=== PATIENT | female | born 1950 | race Caucasian/White ===

== ENCOUNTER 2018-03-05 21:02 | Emergency (ER) | payer BC, OTHER ==
[2018-03-05 22:44] LABS: Absolute Lymphocytes (CBC) 1.9 K/uL (0.7-4.9); Absolute Monocytes 0.8 K/uL (0.1-1.3); Absolute Neutrophil 4.4 K/uL (1.8-8.0); Basophils % 0.8 % (0-1.3); Eosinophils % 2.5 % (0-4.4); Lymphocytes % 26.2 % (15.3-44.8); MCH 29.6 pg (27.0-35.0); MCV 90.3 fL (80-100); Monocytes % 10.8 % (3.3-12.3); RBC Red Blood Cell Count 4.65 M/uL (3.86-4.86)
[2018-03-05 22:49] LABS: Protime INR 1.09
[2018-03-05 23:03] LABS: Potassium 3.4 mEq/L (3.6-5.0)
[2018-03-05 23:09] LABS: Albumin 3.8 g/dL (3.2-5.5); Bilirubin Direct 0.2 mg/dL (0-0.2); Bilirubin Total 0.5 mg/dL (0.3-1.2); Magnesium 1.6 mg/dL (1.8-2.5); Protein, Total 7.5 g/dL (6.0-8.3)
[2018-03-05] MEDS ORDERED: AZITHROMYCIN 250 MG TAB ONE (23:15)
[2018-03-05] MEDS ORDERED: KETOROLAC 30 MG/ML INJ ONE (23:15)
[2018-03-05] MEDS ORDERED: predniSONE 20 MG TAB ONE (23:15)
[2018-03-05] MEDS ORDERED: CEFTRIAXONE/SWI 1gm 1 GM/10 ML SYR ONE (23:16)
[2018-03-05] MEDS ORDERED: ALBUTEROL 2.5 MG/3 ML NEB SOL ONE (23:43)
[2018-03-05] MEDS ORDERED: IPRATROPIUM BROM 0.5MG/2.5ML ONE (23:43)
--- NOTE | 2018-03-06 00:01 | ER ---
Nurse's Notes [facility] Name: Carla Logan Age: 67 yrs Sex: Female : 1950 Arrival Date: 03/05/2018 Time: 21:05 Bed 5 Private MD: Channing Camarena T Diagnosis: Pneumonia due to other specified bacteria Presentation: 03/05 21:10 Presenting complaint: Patient states: Martha felt SOB since thanksgiving but it has gotten la1 much worse over the course of the last few days. Pt able to speak full sentences in triage, respirations even and unlabored. Transition of care: patient was not received from another setting of care. Onset of symptoms was March 05, 2018. Initial Sepsis Screen: Does the patient meet any 2 criteria? No. Patient's initial sepsis screen is negative. Does the patient have a suspected source of infection? No. Patient's initial sepsis screen is negative. Care prior to arrival: None. 21:10 Method Of Arrival: Wheelchair la1 21:10 Acuity: YESSICA 3 la1 Triage Assessment: 22:42 General: Appears in no apparent distress. comfortable, Behavior is calm, cooperative, ao appropriate for age. Respiratory: Reports shortness of breath Onset: The symptoms/episode began/occurred this morning, the patient has mild shortness of breath. Historical: - Allergies: 21:11 No Known Allergies; la1 - PMHx: 21:11 Diabetes - NIDDM; Hypertension; la1 - Immunization history:: Adult Immunizations up to date. - Social history:: Smoking status: Patient/guardian denies using tobacco. - Family history:: not pertinent. Screenin:41 Abuse screen: Denies threats or abuse. Denies injuries from another. Nutritional ao screening: No deficits noted. Tuberculosis screening: No symptoms or risk factors identified. Fall Risk None identified. Assessment: 22:40 General: Appears in no apparent distress. comfortable, Behavior is calm, cooperative, ao appropriate for age. Pain: Denies pain. Neuro: Level of Consciousness is awake, alert, obeys commands, Oriented to person, place, time, situation, Appropriate for age Moves all extremities. Speech is normal, Facial symmetry appears normal. Cardiovascular: Capillary refill < 3 seconds Patient's skin is warm and dry. Cardiovascular: Rhythm is regular. Respiratory: Airway is patent Respiratory effort is even, unlabored, Respiratory pattern is regular, symmetrical, Breath sounds with wheezes bilaterally. GI: Abdomen is non-distended. : No signs and/or symptoms were reported regarding the genitourinary system. EENT: No signs and/or symptoms were reported regarding the EENT system. Derm: Skin is normal. Musculoskeletal: No signs and/or symptoms reported regarding the musculoskeletal system. 23:40 Reassessment: Received a verbal orders fro Dr Daniels to give a breathing treatment of ao Duoneb to patient. 23:45 Reassessment: Patient appears in no apparent distress at this time. Patient and/or ao family updated on plan of care and expected duration. Pain level reassessed. Patient is alert, oriented x 3, equal unlabored respirations, skin warm/dry/pink. Vital Signs: 21:11 BP 131 / 59; Pulse 100; Resp 19; Temp 97.9(O); Pulse Ox 91% on R/A; Weight 118.39 kg; la1 Height 5 ft. 3 in. (160.02 cm); 22:30 BP 146 / 80; Pulse 84; Resp 6; Pulse Ox 94% ; Pain 2/10; ao 23:45 BP 145 / 83; Pulse 83; Resp 16; Pulse Ox 100% on Nebulizer Mask; Pain 0/10; ao 21:11 Body Mass Index 46.23 (118.39 kg, 160.02 cm) la1 ED Course: 21:05 Patient arrived in ED. es 21:06 Channing Camarena MD is Private Physician. es 21:10 Triage completed. la1 21:11 Arm band placed on right wrist. la1 21:45 Meghan Daniels MD is Attending Physician. ma2 22:27 XRAY Chest (1 view) In Process Unspecified. EDMS 22:27 X-ray completed. Portable x-ray completed in exam room. Patient tolerated procedure ag1 well. 22:28 Dewey Kidd, ENOCH is Primary Nurse. ao 22:42 Patient has correct armband on for positive identification. Pulse ox on. NIBP on. ao 22:43 Inserted saline lock: 20 gauge in right antecubital area, using aseptic technique. ao ,using aseptic technique. Flushed with 10 ml NS Blood collected. 03/06 00:44 No provider procedures requiring assistance completed. IV discontinued, intact, ao bleeding controlled, No redness/swelling at site. Pressure dressing applied. Administered Medications: 03/05 23:20 Drug: TORadol 30 mg Route: IVP; Site: right antecubital; ao 03/06 00:15 Follow up: Response: No adverse reaction ao 03/05 23:25 Drug: Rocephin 1 grams Route: IV; Rate: bolus; Site: right antecubital; ao 03/06 00:14 Follow up: IV Status: Completed infusion; IV Intake: 10ml ao 03/05 23:25 Drug: AZITHromycin 500 mg Route: PO; ao 03/06 00:14 Follow up: Response: No adverse reaction ao 03/05 23:26 Drug: predniSONE 40 mg Route: PO; ao 03/06 00:14 Follow up: Response: No adverse reaction ao 03/05 23:50 Drug: DuoNeb (3:1) (2.5 mg - 0.5 mg) 3 ml Route: Nebulizer; ao 03/06 00:15 Follow up: Response: No adverse reaction ao Intake: 00:14 IV: 10ml; Total: 10ml. ao Outcome: 00:00 Discharge ordered by . ma2 00:44 Discharged to home ambulatory, with family. ao 00:44 Condition: stable 00:44 Discharge instructions given to patient, Instructed on discharge instructions, follow up and referral plans. Demonstrated understanding of instructions, follow-up care, medications, wound care, Prescriptions given X 2. 00:45 Patient left the ED. ao Signatures: Dispatcher [employer] Pamela Watkins Lee, RN RN la1 Yvette Yoder 1 Dewey Kidd RN RN ao Alzahri, Mohammad, MD MD ma2 Corrections: (The following items were deleted from the chart) 03/05 21:30 21:11 BP 131 / 59; Pulse 100bpm; Resp 19bpm; Pulse Ox 100% RA; Temp 97.9F Oral; 118.39 la1 kg; Height 5 ft. 3 in.; BMI: 46.2; la1
--- NOTE | 2018-03-06 00:01 | EDPHYS ---
Physician Documentation [facility] Name: Carla Logan Age: 67 yrs Sex: Female : 1950 Arrival Date: 03/05/2018 Time: 21:05 Bed 5 Private MD: Channing Camarena T ED Physician Meghan Daniels HPI: 03/05 21:59 This 67 yrs old Female presents to ER via Wheelchair with complaints of ma2 Breathing Difficulty. 21:59 The patient has shortness of breath with light activity. Onset: The symptoms/episode ma2 began/occurred gradually, 1 day(s) ago. Duration: The symptoms are continuous. The patient's shortness of breath has no apparent modifying factors. Associated signs and symptoms: Pertinent positives: productive cough, Pertinent negatives: chest pain, non-productive cough. Severity of symptoms: At their worst the symptoms were moderate in the emergency department the symptoms are unchanged. The patient has not experienced similar symptoms in the past. Historical: - Allergies: 21:11 No Known Allergies; la1 - PMHx: 21:11 Diabetes - NIDDM; Hypertension; la1 - Immunization history:: Adult Immunizations up to date. - Social history:: Smoking status: Patient/guardian denies using tobacco. - Family history:: not pertinent. ROS: 21:59 Constitutional: Negative for fever, chills, and weight loss, Eyes: Negative for injury, ma2 pain, redness, and discharge, Neck: Negative for injury, pain, and swelling, Cardiovascular: Negative for chest pain, palpitations, and edema, Abdomen/GI: Negative for abdominal pain, nausea, diarrhea, and constipation, Back: Negative for injury and pain, : Negative for injury, bleeding, discharge, and swelling, MS/Extremity: Negative for injury and deformity, Skin: Negative for injury, rash, and discoloration, Neuro: Negative for headache, weakness, numbness, tingling, and seizure, Psych: Negative for depression, anxiety, suicide ideation, homicidal ideation, and hallucinations, Allergy/Immunology: Negative for hives, rash, and allergies, Endocrine: Negative for neck swelling, polydipsia, polyuria, polyphagia, and marked weight changes, Hematologic/Lymphatic: Negative for swollen nodes, abnormal bleeding, and unusual bruising. 21:59 Respiratory: Positive for cough, Negative for dyspnea on exertion, hemoptysis, pleurisy. Exam: 21:59 Constitutional: This is a well developed, well nourished patient who is awake, alert, ma2 and in no acute distress. Head/Face: Normocephalic, atraumatic. Eyes: Pupils equal round and reactive to light, extra-ocular motions intact. Lids and lashes normal. Conjunctiva and sclera are non-icteric and not injected. Cornea within normal limits. Periorbital areas with no swelling, redness, or edema. ENT: Nares patent. No nasal discharge, no septal abnormalities noted. Tympanic membranes are normal and external auditory canals are clear. Oropharynx with no redness, swelling, or masses, exudates, or evidence of obstruction, uvula midline. Mucous membranes moist. Neck: Trachea midline, no thyromegaly or masses palpated, and no cervical lymphadenopathy. Supple, full range of motion without nuchal rigidity, or vertebral point tenderness. No Meningismus. Chest/axilla: Normal chest wall appearance and motion. Nontender with no deformity. No lesions are appreciated. Cardiovascular: Regular rate and rhythm with a normal S1 and S2. No gallops, murmurs, or rubs. Normal PMI, no JVD. No pulse deficits. Respiratory: Lungs have equal breath sounds bilaterally, clear to auscultation and percussion. No rales, rhonchi or wheezes noted. No increased work of breathing, no retractions or nasal flaring. Neuro: Awake and alert, GCS 15, oriented to person, place, time, and situation. Cranial nerves II-XII grossly intact. Motor strength 5/5 in all extremities. Sensory grossly intact. Cerebellar exam normal. Normal gait. Psych: Awake, alert, with orientation to person, place and time. Behavior, mood, and affect are within normal limits. Vital Signs: 21:11 BP 131 / 59; Pulse 100; Resp 19; Temp 97.9(O); Pulse Ox 91% on R/A; Weight 118.39 kg; la1 Height 5 ft. 3 in. (160.02 cm); 22:30 BP 146 / 80; Pulse 84; Resp 6; Pulse Ox 94% ; Pain 2/10; ao 23:45 BP 145 / 83; Pulse 83; Resp 16; Pulse Ox 100% on Nebulizer Mask; Pain 0/10; ao 21:11 Body Mass Index 46.23 (118.39 kg, 160.02 cm) la1 MDM: 21:45 Patient medically screened. ma2 21:59 Differential diagnosis: Anxiety Reaction asthma, CHF exacerbation, pneumonia, ma2 Pneumothorax pulmonary edema. 23:54 Antibiotic administration: The patient is discharged and will get outpatient ma2 antibiotics. The patient's Wells Deep Vein Thrombosis Score was calculated as follows: No Risks (0 Pts). Data reviewed: vital signs, nurses notes, EMS record, lab test result(s). Counseling: I had a detailed discussion with the patient and/or guardian regarding: the historical points, exam findings, and any diagnostic results supporting the discharge/admit diagnosis, the presence of at least one elevated blood pressure reading (>120/80) during this emergency department visit, the need for outpatient follow up. Counseling: I had a detailed discussion with the patient and/or guardian regarding: patient has pneumonia on CXR, given IVF breathing treatment HR improved to 85 from 100, her cough improved given her age and BUN >18 she can be managed as inpatient or outpatient with close f/u however she would like to go home and already scheduled to see her pcp at 9 am Wednesday . Response to treatment: the patient's symptoms have mildly improved after treatment. 03/05 21:56 Order name: Basic Metabolic Panel; Complete Time: 23:35 03/05 21:56 Order name: BNP; Complete Time: 23:35 03/05 21:56 Order name: CBC with Diff; Complete Time: 22:50 03/05 21:56 Order name: LFT's; Complete Time: 23:35 mo03/05 21:56 Order name: Magnesium; Complete Time: 23:35 03/05 21:56 Order name: PT-INR; Complete Time: 23:35 mo03/05 21:56 Order name: Ptt, Activated; Complete Time: 23:35 mo03/05 21:56 Order name: Troponin (emerg Dept Use Only); Complete Time: 23:35 ma2 03/05 21:56 Order name: XRAY Chest (1 view) [facility] 03/05 21:56 Order name: EKG; Complete Time: 21:57 mo2 03/05 21:56 Order name: Cardiac monitoring; Complete Time: 23:26 03/05 21:56 Order name: EKG - Nurse/Tech; Complete Time: 23:26 mo2 03/05 21:56 Order name: IV Saline Lock; Complete Time: 22:42 [facility] 03/05 21:56 Order name: Labs collected and sent; Complete Time: 22:42 [facility] 03/05 21:56 Order name: O2 Per Protocol; Complete Time: 22:42 mo2 03/05 21:56 Order name: O2 Sat Monitoring; Complete Time: 22:42 mo2 Administered Medications: 23:20 Drug: TORadol 30 mg Route: IVP; Site: right antecubital; ao 03/06 00:15 Follow up: Response: No adverse reaction ao 03/05 23:25 Drug: Rocephin 1 grams Route: IV; Rate: bolus; Site: right antecubital; ao 03/06 00:14 Follow up: IV Status: Completed infusion; IV Intake: 10ml ao 03/05 23:25 Drug: AZITHromycin 500 mg Route: PO; ao 03/06 00:14 Follow up: Response: No adverse reaction ao 03/05 23:26 Drug: predniSONE 40 mg Route: PO; ao 03/06 00:14 Follow up: Response: No adverse reaction ao 03/05 23:50 Drug: DuoNeb (3:1) (2.5 mg - 0.5 mg) 3 ml Route: Nebulizer; ao 03/06 00:15 Follow up: Response: No adverse reaction ao Disposition: 03/06/18 00:00 Discharged to Home. Impression: Pneumonia due to other specified bacteria. - Condition is Stable. - Prescriptions for Albuterol Sulfate 90 mcg/actuation - inhale 1-2 puff by INHALATION route every 4-6 hours; 1 Inhaler. Zithromax 500 mg Oral Tablet - take 1 tablet by ORAL route once daily for 5 days; 5 tablet. - Medication Reconciliation Form, Thank You Letter, Antibiotic Education, Prescription Opioid Use form. - Follow up: Private Physician; When: Tomorrow; Reason: Continuance of care. - Problem is new. - Symptoms have improved. Signatures: Dispatcher [employer] EDMS Richar Solano RN RN la1 Dewey Kidd RN RN ao Alzahri, Mohammad, MD MD ma2 Corrections: (The following items were deleted from the chart) 00:43 03/05 21:56 Urine Dipstick-Ancillary ordered. ma2 ao
[2018-03-06] MEDS ORDERED: ALBUTEROL 2.5 MG/3 ML NEB SOL ONE (00:08)
--- NOTE | 2018-03-06 06:13 | EKG ---
Test Date: 2018-03-05 Test Time: 22:39:09 Accounts Receivable Manager: DANNY MEASUREMENT RESULTS: Intervals: Rate: 80 MI: 178 QRSD: 96 QT: 386 QTc: 445 [place]: P: 96 MI: 178 QRS: -5 T: 58 INTERPRETIVE STATEMENTS: Normal sinus rhythm Minimal voltage criteria for LVH, may be normal variant Borderline ECG Compared to ECG 08/02/2013 11:01:48 No significant changes Electronically Signed On 03-06-18 06:12:00 CDT by Shaheed Alamo
--- NOTE | 2018-03-06 11:50 | RAD REPORT ---
EXAM DESCRIPTION: RAD - Chest Single View - 03/05/2018 10:29 pm CLINICAL HISTORY: Shortness of breath COMPARISON: 04/01/2016 FINDINGS: Portable technique limits examination quality. Linear opacities in both lung bases noted with small left pleural effusion, probably representing ate lectasis or developing pneumonia. The heart is mildly prominent size. No displaced fractures.
== END 2018-03-06 00:45 | disposition home or self-care (01) ==
LOC: ER 21:02
DX: J15.8 Pneumonia due to other specified bacteria (principal); E11.9 Type 2 diabetes mellitus without complications; I10 Essential (primary) hypertension
CPT/HCPCS: 36415; 71045; 80048; 80076; 83735; 83880; 84484; 85025; 85610; 85730; 93005; 94640; 96365; 96375; 99284; J0696; J7512

== ENCOUNTER 2018-03-06 19:34 | Observation (INO) | payer OTHER ==
[2018-03-06] MEDS ORDERED: METHYLPREDNISOLONE 125 MG INJ ONE (20:49)
--- NOTE | 2018-03-06 20:59 | RAD REPORT ---
EXAM DESCRIPTION: RAD - Chest Single View - 03/06/2018 8:46 pm CLINICAL HISTORY: Pneumonia COMPARISON: 03/05/2018 FINDINGS: Portable technique limits examination quality. Mild improvement in lung aeration is noted since comparative study. Mild interstitial prominence pers ists. No focal consolidation detected. The heart is mildly enlarged in size. No displaced fractures.D egenerative changes are present both shoulders. IMPRESSION: Mild improvement lung aeration since preceding day's study.
[2018-03-06 21:04] LABS: Absolute Lymphocytes (CBC) 2.1 K/uL (0.7-4.9); Absolute Monocytes 0.8 K/uL (0.1-1.3); Absolute Neutrophil 4.4 K/uL (1.8-8.0); Basophils % 0.7 % (0-1.3); Eosinophils % 1.4 % (0-4.4); Hematocrit 39.9 % (36.0-45.0); Lymphocytes % 28.2 % (15.3-44.8); MCH 29.8 pg (27.0-35.0); MCV 89.8 fL (80-100); MPV 7.8 fL (7.6-11.3); Monocytes % 10.5 % (3.3-12.3); RBC Red Blood Cell Count 4.45 M/uL (3.86-4.86)
[2018-03-06 21:13] LABS: Bicarbonate 31 mEq/L (21-31); Glucose Level 133 mg/dL (65-120); Potassium 3.1 mEq/L (3.6-5.0); Sodium Level 136 mEq/L (135-145)
[2018-03-06 21:33] LABS: ALT/SGPT 22 IU/L (10-60); AST/SGOT 21 IU/L (10-42); Albumin 2.9 g/dL (3.2-5.5); Alkaline Phosphatase 75 IU/L (42-121); BUN Blood Urea Nitrogen 21 mg/dL (6-20); Bilirubin Total 0.3 mg/dL (0.3-1.2); Protein, Total 6.9 g/dL (6.0-8.3)
--- NOTE | 2018-03-06 22:09 | ER ---
Nurse's Notes [facility] Name: Carla Logan Age: 67 yrs Sex: Female : 1950 Arrival Date: 03/06/2018 Time: 19:35 Bed 14 Private MD: Channing Camarena T Diagnosis: Pneumonia due to other specified bacteria;Hypoxemia Presentation: 03/06 19:38 Presenting complaint: Patient states: Dx with PNE here yesterday, has taken one dose of la1 abx at home, not feeling better, still coughing. Transition of care: patient was not received from another setting of care. Onset of symptoms was March 06, 2018. Initial Sepsis Screen: Does the patient meet any 2 criteria? No. Patient's initial sepsis screen is negative. Does the patient have a suspected source of infection? No. Patient's initial sepsis screen is negative. Care prior to arrival: None. 19:38 Method Of Arrival: Wheelchair la1 19:38 Acuity: YESSICA 3 la1 Historical: - Allergies: 19:39 No Known Allergies; la1 - PMHx: 19:39 Diabetes - NIDDM; Hypertension; la1 - Immunization history:: Adult Immunizations up to date. - Social history:: Smoking status: Patient/guardian denies using tobacco. Screenin:31 Abuse screen: Denies threats or abuse. Denies injuries from another. Nutritional bs1 screening: No deficits noted. Tuberculosis screening: No symptoms or risk factors identified. Fall Risk None identified. Assessment: 20:51 General: Appears uncomfortable, ill, Behavior is calm, appropriate for age. Pain: bs1 Complains of pain in chest from cough Pain does not radiate. Neuro: Level of Consciousness is awake, alert, obeys commands, Oriented to person, place, time, situation, Appropriate for age Spool Sorter are equal bilaterally Moves all extremities. Cardiovascular: Denies chest pain, palpitations, Heart tones S1 S2 present Capillary refill < 3 seconds Patient's skin is warm and dry. Respiratory: Reports shortness of breath at rest on exertion cough that is productive, Airway is patent Trachea midline Respiratory effort is even, unlabored, Respiratory pattern is regular, symmetrical, Breath sounds are coarse bilaterally. Respiratory: Reports reports congestion. GI: No deficits noted. No signs and/or symptoms were reported involving the gastrointestinal system. : No deficits noted. No signs and/or symptoms were reported regarding the genitourinary system. EENT: No deficits noted. No signs and/or symptoms were reported regarding the EENT system. Derm: Skin is intact, Skin is pink, warm \T\ dry. Musculoskeletal: Circulation, motion, and sensation intact. Capillary refill < 3 seconds, Range of motion: intact in all extremities. 21:45 Reassessment: Patient appears in no apparent distress at this time. Patient and/or bs1 family updated on plan of care and expected duration. Pain level reassessed. Patient is alert, oriented x 3, equal unlabored respirations, skin warm/dry/pink. Pending lab results. 22:45 Reassessment: Patient appears in no apparent distress at this time. No changes from bs1 previously documented assessment. Patient and/or family updated on plan of care and expected duration. Pain level reassessed. Patient is alert, oriented x 3, equal unlabored respirations, skin warm/dry/pink. Pending results of Xray. 23:33 Reassessment: Patient appears in no apparent distress at this time. No changes from bs1 previously documented assessment. Patient and/or family updated on plan of care and expected duration. Pain level reassessed. Patient is alert, oriented x 3, equal unlabored respirations, skin warm/dry/pink. Patient being admmitted. 23:55 Reassessment: Report given to ENOCH Jarquin. bs1 Vital Signs: 19:39 BP 129 / 63; Pulse 80; Resp 19; Temp 98.8(TE); Pulse Ox 95% on R/A; Weight 118.39 kg; la1 Height 5 ft. 3 in. (160.02 cm); 21:00 Pulse 79; Resp 25; jb5 21:05 BP 114 / 67; Pulse 76; Pulse Ox 98% on R/A; bs1 21:11 BP 114 / 67; ao 22:30 BP 132 / 57; Pulse 93; Resp 18 S; Pulse Ox 93% on R/A; bs1 23:30 BP 140 / 50; Pulse 73; Resp 19; Pulse Ox 94% on R/A; bs1 23:52 BP 126 / 59; Pulse 73; Resp 18; Pulse Ox 94% on R/A; bs1 19:39 Body Mass Index 46.23 (118.39 kg, 160.02 cm) la1 ED Course: 19:35 Patient arrived in ED. es 19:37 Channing Camarena MD is Private Physician. es 19:39 Triage completed. la1 19:40 Arm band placed on left wrist. la1 20:26 Dillon Deal MD is Attending Physician. tw4 20:44 Kecia Dockery RN is Primary Nurse. bs1 20:46 Chest Single View XRAY In Process Unspecified. EDMS 20:53 Inserted saline lock: 22 gauge in right antecubital area, using aseptic technique. jb5 Blood collected. 22:08 Sita Vernon MD is Hospitalizing Provider. tw4 23:31 Patient has correct armband on for positive identification. Bed in low position. Call bs1 light in reach. Side rails up X 1. Pulse ox on. NIBP on. Warm blanket given. 23:33 No provider procedures requiring assistance completed. bs1 23:56 Patient admitted, IV remains in place. intact. bs1 Administered Medications: 20:38 CANCELLED (Physician Discretion): Albuterol 2.5 mg Inhalation once tw4 21:16 Drug: SOLU-Medrol 125 mg Route: IVP; Site: right antecubital; bs1 21:30 Follow up: Response: No adverse reaction bs1 22:35 Drug: Rocephin - (cefTRIAXone) 1 grams Route: IVPB; Infused Over: 30 mins; Site: right bs1 antecubital; 23:51 Follow up: IV Status: Completed infusion bs1 22:42 Not Given (Physician Discretion): Rocephin (cefTRIAXone) 50 mg/kg IVPB once; not to bs1 exceed 2 grams 23:05 Drug: AZITHromycin 500 mg Route: IVPB; Infused Over: 1 hrs; Site: right antecubital; bs1 23:51 Follow up: IV Status: Infusion continued upon admission bs1 Outcome: 22:08 Decision to Hospitalize by Provider. tw4 23:55 Admitted to Tele accompanied by tech, via wheelchair, room 409, with chart, Report bs1 called to ENOCH Jarquin 23:55 Condition: stable 23:55 Instructed on the need for admit, Demonstrated understanding of instructions. 23:58 Patient left the ED. bs1 Signatures: Dispatcher [employer] EDPamela Nieto Lee, RN RN la1 Dewey Kidd RN RN ao Broussard Kiera jb5 Kecia Dockery RN RN bs1 Dillon Dael MD MD tw4
--- NOTE | 2018-03-06 22:09 | EDPHYS ---
Physician Documentation [facility] Name: Carla Logan Age: 67 yrs Sex: Female : 1950 Arrival Date: 03/06/2018 Time: 19:35 Bed 14 Private MD: Channing Camarena T ED Physician Dillon Deal HPI: 03/07 00:00 This 67 yrs old Female presents to ER via Wheelchair with complaints of Chest tw4 Congestion. 00:00 The patient or guardian reports cough. Severity of symptoms: At their worst the tw4 symptoms were moderate, in the emergency department the symptoms are unchanged. Modifying factors: The symptoms are alleviated by nothing, the symptoms are aggravated by nothing. 00:00 Onset: The symptoms/episode began/occurred 2 day(s) ago. Associated signs and symptoms: tw4 Pertinent positives: nausea. The patient has been recently seen by a physician: The patient has been recently seen at the [facility] Emergency Department, yesterday, for similar complaints was treated for pneumonia as outpatient yesterday pt states that she does not feel better. Historical: - Allergies: 03/06 19:39 No Known Allergies; la1 - PMHx: 19:39 Diabetes - NIDDM; Hypertension; la1 - Immunization history:: Adult Immunizations up to date. - Social history:: Smoking status: Patient/guardian denies using tobacco. ROS: 03/07 00:00 Constitutional: Negative for fever, chills, and weight loss, Abdomen/GI: Negative for tw4 abdominal pain, nausea, vomiting, diarrhea, and constipation, Back: Negative for injury and pain, MS/Extremity: Negative for injury and deformity, Skin: Negative for injury, rash, and discoloration, Neuro: Negative for headache, weakness, numbness, tingling, and seizure. Respiratory: Positive for cough, dyspnea on exertion, shortness of breath, Negative for hemoptysis, orthopnea. Exam: 00:02 Head/Face: Normocephalic, atraumatic. Chest/axilla: Normal chest wall appearance and tw4 motion. Nontender with no deformity. No lesions are appreciated. Cardiovascular: Regular rate and rhythm with a normal S1 and S2. No gallops, murmurs, or rubs. Normal PMI, no JVD. No pulse deficits. 00:02 Constitutional: The patient appears in obvious distress, mildly distressed. 00:02 Respiratory: mild respiratory distress is noted, Respirations: shallow respirations, Breath sounds: decreased breath sounds, are heard in the right posterior middle lobe and right posterior lower lobe. Vital Signs: 03/06 19:39 BP 129 / 63; Pulse 80; Resp 19; Temp 98.8(TE); Pulse Ox 95% on R/A; Weight 118.39 kg; la1 Height 5 ft. 3 in. (160.02 cm); 21:00 Pulse 79; Resp 25; jb5 21:05 BP 114 / 67; Pulse 76; Pulse Ox 98% on R/A; bs1 21:11 BP 114 / 67; ao 22:30 BP 132 / 57; Pulse 93; Resp 18 S; Pulse Ox 93% on R/A; bs1 23:30 BP 140 / 50; Pulse 73; Resp 19; Pulse Ox 94% on R/A; bs1 23:52 BP 126 / 59; Pulse 73; Resp 18; Pulse Ox 94% on R/A; bs1 19:39 Body Mass Index 46.23 (118.39 kg, 160.02 cm) la1 MDM: 20:26 Patient medically screened. tw4 03/07 00:02 Differential Diagnosis: Bronchitis Asthma Exacerbation Viral Syndrome Pneumonia. Data tw4 reviewed: vital signs, nurses notes. Counseling: I had a detailed discussion with the patient and/or guardian regarding: the historical points, exam findings, and any diagnostic results supporting the discharge/admit diagnosis, lab results, radiology results. 03/06 20:42 Order name: CBC with Diff; Complete Time: 22:01 tw4 03/06 20:42 Order name: CMP; Complete Time: 22:01 tw4 03/06 20:28 Order name: Chest Single View XRAY; Complete Time: 22:01 tw4 Administered Medications: 03/06 20:38 CANCELLED (Physician Discretion): Albuterol 2.5 mg Inhalation once tw4 21:16 Drug: SOLU-Medrol 125 mg Route: IVP; Site: right antecubital; bs1 21:30 Follow up: Response: No adverse reaction bs1 22:35 Drug: Rocephin - (cefTRIAXone) 1 grams Route: IVPB; Infused Over: 30 mins; Site: right bs1 antecubital; 23:51 Follow up: IV Status: Completed infusion bs1 22:42 Not Given (Physician Discretion): Rocephin (cefTRIAXone) 50 mg/kg IVPB once; not to bs1 exceed 2 grams 23:05 Drug: AZITHromycin 500 mg Route: IVPB; Infused Over: 1 hrs; Site: right antecubital; bs1 23:51 Follow up: IV Status: Infusion continued upon admission bs1 Disposition: 03/06/18 22:08 Hospitalization ordered by Sita Vernon for Observation. Preliminary diagnosis are Pneumonia due to other specified bacteria, Hypoxemia. - Bed requested for Telemetry/MedSurg (observation). - Status is Observation. bs1 - Condition is Fair. - Problem is an ongoing problem. - Symptoms are unchanged. UTI on Admission? No Signatures: Dispatcher [employer] EDMS Richar Solano RN RN la1 Kecia Dockery RN RN bs1 Dillon Deal MD MD tw4 Corrections: (The following items were deleted from the chart) 20:38 20:28 Albuterol 2.5 mg Inhalation once ordered. tw4 tw4 03/07 00:02 00:00 Onset: The symptoms/episode began/occurred today, tw4 tw4 00:02 00:00 The patient has not experienced similar symptoms in the past, tw4 tw4
[2018-03-06] MEDS ORDERED: CEFTRIAXONE 1000 MG/VIAL ONE (22:19)
[2018-03-06] MEDS ORDERED: AZITHROMYCIN 500 MG/250 ML BAG ONE (22:19)
[2018-03-06] MEDS ORDERED: NA CHLORIDE 0.9% 100 ML IV ONE (22:19)
[2018-03-06] MEDS ORDERED: IPRATROPIUM BROM 0.5MG/2.5ML NEB PRN (22:50)
[2018-03-06] MEDS ORDERED: ONDANSETRON 4 MG/2 ML VIAL IV PRN (22:50)
[2018-03-06] MEDS ORDERED: ALBUTEROL 2.5 MG/3 ML NEB SOL NEB PRN (22:50)
--- NOTE | 2018-03-06 23:08 | P.HP ---
Certification for Inpatient Patient admitted to: Observation With expected LOS: <2 Midnights Practitioner: I am a practitioner with admitting privileges, knowledge of patient current condition, hospital course, and medical plan of care. Services: Services provided to patient in accordance with Admission requirements found in Title 42 Section 412.3 of the Code of Federal Regulations Patient History Date of Service: 03/06/18 Reason for admission: pneumonia failed outpatient therapy History of Present Illness: Ms Logan is a 67 years old woman with history of HTN, DM II, who was diagnosed with pneumonia yesterday. She was discharged home from ER with oral Azithromycin. However, the patient did not improved, and she continue having significant cough, and SOB. She denied current episodes or fever or chills. CXR today shows mild improvement lung aeration since preceding day's study. WBC count within normal limits. O2 Sat 95% on RA. Allergies No Known Allergies Allergy (Unverified 03/06/18 00:49) - Past Medical/Surgical History -: DM II -: obesity -: HTN Past Surgical History: Reviewed- Non-Contributory - Family History Family History: Reviewed- Non-Contributory - Social History Smoking Status: Former smoker Alcohol use: No CD- Drugs: No Place of Residence: Home Review of Systems 10-point ROS is otherwise unremarkable Physical Examination - Physical Exam General: Alert, In no apparent distress HEENT: Atraumatic, PERRLA, Mucous membr. moist/pink, EOMI, Sclerae nonicteric Neck: Supple, 2+ carotid pulse no bruit, No LAD, Without JVD or thyroid abnormality Respiratory: Diminished, Crackles/rales (scatered bibasilar crackles) Cardiovascular: Regular rate/rhythm, Normal S1 S2 Gastrointestinal: Normal bowel sounds, No tenderness Musculoskeletal: No tenderness Integumentary: No rashes Neurological: Normal speech, Normal strength at 5/5 x4 extr, Normal tone, Normal affect Lymphatics: No axilla or inguinal lymphadenopathy - Studies Laboratory Data (last 24 hrs) 03/06/18 20:53: Sodium 136, Potassium 3.1 L, BUN 21 H, Creatinine 0.64, Glucose 133 H, Total Bilirubin 0.3, AST 21, ALT 22, Alkaline Phosphatase 75 03/06/18 20:53: WBC 7.5, Hgb 13.3, Hct 39.9, Plt Count 178 Assessment and Plan - Problems (Diagnosis) (1) Pneumonia Current Visit: Yes Status: Acute Qualifiers: Pneumonia type: due to unspecified organism Laterality: bilateral Lung location: lower lobe of lung Qualified Code(s): J18.1 - Lobar pneumonia, unspecified organism (2) Diabetes mellitus Current Visit: Yes Status: Acute Qualifiers: Diabetes mellitus type: type 2 Diabetes mellitus exterminator helper insulin use: without alf use Diabetes mellitus complication status: with unspecified complications Qualified Code(s): E11.8 - Type 2 diabetes mellitus with unspecified complications (3) HTN (hypertension) Current Visit: Yes Status: Acute Qualifiers: Hypertension type: essential hypertension Qualified Code(s): I10 - Essential (primary) hypertension (4) Obesity Current Visit: Yes Status: Acute Qualifiers: Obesity type: due to excess calories Obesity classification: unspecified obesity classification Serious obesity comorbidity presence: unspecified whether serious comorbidity present Qualified Code(s): E66.09 - Other obesity due to excess calories - Plan Ms Logan will be admitted to the hospital due to pneumonia, that failed outpatient therapy. Will admit overnight to evaluate her vital signs, make sure that her O2 sat remain WNL. Will continue with breathing treatments and IV antibiotics. Will resume her home medications once verified. - Advance Directives Does patient have a Living Will: No Does patient have a Durable POA for Healthcare: No - Code Status/Comfort Care Code Status Assessed: Yes Code Status: Full Code
[2018-03-07] MEDS: NA CHLORIDE 0.9% 1,000 ML IV SCH ×2 (01:02→10:04)
[2018-03-07] MEDS: ACETAMINOPHEN 500 MG TAB PO PRN ×2 (01:04→08:44)
[2018-03-07 04:15] LABS: Absolute Lymphocytes (CBC) 0.8 K/uL (0.7-4.9); Absolute Monocytes 0.1 K/uL (0.1-1.3); Absolute Neutrophil 4.6 K/uL (1.8-8.0); Basophils % 0.2 % (0-1.3); Eosinophils % 0.1 % (0-4.4); Hematocrit 40.2 % (36.0-45.0); Lymphocytes % 14.8 % (15.3-44.8); MCH 29.7 pg (27.0-35.0); MCV 91.5 fL (80-100); Monocytes % 1.9 % (3.3-12.3); RBC Red Blood Cell Count 4.39 M/uL (3.86-4.86)
[2018-03-07 04:33] LABS: BUN Blood Urea Nitrogen 22 mg/dL (6-20); Bicarbonate 28 mEq/L (21-31); Glucose Level 217 mg/dL (65-120); Magnesium 1.7 mg/dL (1.8-2.5); Potassium 3.7 mEq/L (3.6-5.0); Sodium Level 138 mEq/L (135-145)
[2018-03-07] MEDS ORDERED: MAGNESIUM SULFATE 1 gm IVPB 1 GM/100 ML BAG IV ONE (04:47)
[2018-03-07] MEDS ORDERED: KCL 20 MEQ/100 mL IVPB 20 MEQ/100 ML BAG IV SCH (05:00)
[2018-03-07] MEDS: INSULIN -REGULAR HUMAN 50 UNIT/0.5 ML ML SQ SCH ×2 (07:30→11:30)
[2018-03-07] MEDS ORDERED: CEFTRIAXONE 1 GM/NS 50 ML 1 GM/50 ML BAG IV SCH (09:00)
[2018-03-07] MEDS ORDERED: AZITHROMYCIN IV 500 MG in NA CHLORIDE 0.9% 250 ML IVPB SCH ×2 (09:00→21:00)
[2018-03-07] MEDS ORDERED: ENOXAPARIN 40 MG/0.4 ML SQ SCH (09:00)
--- NOTE | 2018-03-07 18:04 | P.SSS ---
Patient History Date of Service: 03/07/18 Reason for admission: pneumonia failed outpatient therapy History of Present Illness: Ms Logan is a 67 years old woman with history of HTN, DM II, who was diagnosed with pneumonia yesterday. She was discharged home from ER with oral Azithromycin. However, the patient did not improved, and she continue having significant cough, and SOB. She denied current episodes or fever or chills. CXR today shows mild improvement lung aeration since preceding day's study. WBC count within normal limits. O2 Sat 95% on RA. Allergies No Known Allergies Allergy (Unverified 03/06/18 00:49) Home Medications: Albuterol Inhaler [Ventolin Inhaler*] 2 puff IH Q6H PRN 03/07/18 Budesonide/Formoterol Fumarate [Symbicort 80-4.5 Mcg Inhaler] 1 puff IH BID #1 hfa.aer.[id number] 03/07/18 Levofloxacin [Levaquin] 500 mg PO DAILY #10 tab 03/07/18 Metformin ER [Glucophage ER*] 500 mg PO BID 03/07/18 Spironolact/Hydrochlorothiazid [Spironolactone-Hctz 25-25 Tab] 25 mg PO DAILY - Past Medical/Surgical History Has patient received pneumonia vaccine in the past: No Diabetic: Yes -: DM II -: obesity -: HTN -: R knee surgery -: Cataract surgery -: Hernia Repair -: Tracheotomy - Family History Family History: Reviewed- Non-Contributory - Family History Mother -: Lung disease, Other (see notes) Notes: Rheumatoid Arthritis Father -: Cancer, Other (see notes) Notes: Colon Cancer - Social History Smoking Status: Former smoker Alcohol use: No CD- Drugs: No Caffeine use: Yes Place of Residence: Home Review of Systems 10-point ROS is otherwise unremarkable Physical Examination - Vital Signs Temperature: 97.4 F Blood Pressure: 149/61 Pulse: 61 Respirations: 18 Pulse Ox (%): 98 - Physical Exam General: Alert, In no apparent distress, Oriented x3 HEENT: Atraumatic, PERRLA, Mucous membr. moist/pink, EOMI, Sclerae nonicteric Neck: Supple, 2+ carotid pulse no bruit, No LAD, Without JVD or thyroid abnormality Respiratory: Clear to auscultation bilaterally, Normal air movement Cardiovascular: Regular rate/rhythm, Normal S1 S2 Gastrointestinal: Normal bowel sounds, No tenderness Musculoskeletal: No tenderness Integumentary: No rashes Neurological: Normal gait, Normal speech, Normal strength at 5/5 x4 extr, Normal tone, Normal affect Lymphatics: No axilla or inguinal lymphadenopathy - Studies Laboratory Data (last 24 hrs) 03/06/18 20:53: Sodium 136, Potassium 3.1 L, BUN 21 H, Creatinine 0.64, Glucose 133 H, Total Bilirubin 0.3, AST 21, ALT 22, Alkaline Phosphatase 75 03/06/18 20:53: WBC 7.5, Hgb 13.3, Hct 39.9, Plt Count 178 - Diagnosis (Problem(s)) (1) URI (upper respiratory infection) Status: Acute Qualifiers: URI type: acute nasopharyngitis (common cold) Qualified Code(s): J00 - Acute nasopharyngitis [common cold] (2) Diabetes mellitus Onset Date: 03/07/18 Status: Chronic Qualifiers: Diabetes mellitus type: type 2 Diabetes mellitus custodial insulin use: without custodial use Diabetes mellitus complication status: with unspecified complications Qualified Code(s): E11.8 - Type 2 diabetes mellitus with unspecified complications (3) HTN (hypertension) Onset Date: 03/07/18 Status: Chronic Qualifiers: Hypertension type: essential hypertension Qualified Code(s): I10 - Essential (primary) hypertension (4) Obesity Onset Date: 03/07/18 Status: Chronic Qualifiers: Obesity type: due to excess calories Obesity classification: unspecified obesity classification Serious obesity comorbidity presence: unspecified whether serious comorbidity present Qualified Code(s): E66.09 - Other obesity due to excess calories Treatment Summary: Overall during the hospital stay patient remained stable The patient was initially admitted to the hospital for possibility of pneumonia failed outpatient therapy. However review the chest x-ray and consulted with pulmonology patient appears to have more of an upper respiratory tract infection. White blood count was normal and x-ray was showing improvement in the aeration. Patient at that time was taken off the oxygen and was saturating 93-94% on room air and was doing well overall. Patient was then discharged home under stable condition and was asked to follow up with primary care provider. Patient's x-ray was consistent with COPD however patient only takes albuterol at home and thus was given a prescription for Symbicort as well. Patient was asked to follow up with pulmonology in 1-2 weeks. Patient was also given a prescription for Levaquin for 5 days. - Disposition Disposition: ROUTINE DISCHARGE Condition: GOOD Patient Discharge Instructions: Please f/u with Dr Adams in the clinic 2 week. New medication. levaquin 500mg daily for 10 days. Symbicort 1 puff BID. You will need to get outpt PFT's done. Diet: Regular Activity: Ad david
[2018-03-07] MEDS ORDERED: CEFTRIAXONE/SWI 1gm 1 GM/10 ML SYR IV SCH (21:00)
== END 2018-03-07 13:30 | disposition home or self-care (01) ==
LOC: ER 19:34 → ERHOLD 22:08 → 4TH 23:43
PROVIDERS: ADMIT Internal Medicine; ATTEND Internal Medicine
DX: J06.9 Acute upper respiratory infection, unspecified (principal); I10 Essential (primary) hypertension; E11.9 Type 2 diabetes mellitus without complications; E66.9 Obesity, unspecified; Z68.42 Body mass index [BMI] 45.0-49.9, adult; Z87.891 Personal history of nicotine dependence
CPT/HCPCS: 36415; 71045; 80048; 80053; 82962 ×2; 83735; 85025 ×2; 94640; 94760 ×2; 96365; 96368; 96375; 99285; G0378 ×2; J0456; J1650; J2930; J3475; J7030; 80076; 83880; 84484; 85610; 85730; 93005; 99284; J0696; J7512

== ENCOUNTER 2018-10-08 09:54 | Emergency (ER) | payer OTHER ==
[2018-10-08] MEDS ORDERED: SUCCINYLCHOLINE 20 MG/ML (10 ML) IV ONE (09:55)
[2018-10-08] MEDS ORDERED: VECURONIUM 10 MG/VIAL IV ONE (09:55)
[2018-10-08] MEDS ORDERED: WATER FOR INJ,STERILE 10 ML IV ONE (09:55)
[2018-10-08] MEDS ORDERED: ETOMIDATE 20 MG/10 ML VIAL IV ONE (09:55)
[2018-10-08 10:34] LABS: Arterial Blood Carboxyhemoglob 0.8 % (0-1.5); Blood Gas Oxyhemoglobin 97.2 % (94-97)
[2018-10-08] MEDS ORDERED: METHYLPREDNISOLONE 125 MG INJ ONE (10:57)
[2018-10-08] MEDS ORDERED: IPRATROPIUM BROM 0.5MG/2.5ML ONE (10:57)
[2018-10-08] MEDS ORDERED: ALBUTEROL 2.5 MG/3 ML NEB SOL ONE (10:57)
[2018-10-08 12:12] LABS: Blood Gas Oxyhemoglobin 89.5 % (94-97); Blood O2 Saturation 91.3 % (92-98.5)
--- NOTE | 2018-10-08 12:20 | RAD REPORT ---
EXAM DESCRIPTION: RAD - Chest Single View - 10/08/2018 11:18 am CLINICAL HISTORY: Decreased O2 saturation COMPARISON: Portable February 2018 TECHNIQUE: AP portable chest image was obtained 1103 hours . FINDINGS: Left base patchy opacification is present suspected to be pneumonia. Minimal pleural fluid likely present as well. Baseline interstitial pattern is not substantially different from comparison . Heart and vasculature are normal. No pneumothorax or measurable right pleural effusion. No acute bryan [place] abnormality seen. No acute aortic findings suspected. IMPRESSION: Suspected mild or early left lung base pneumonia.
[2018-10-08 12:48] LABS: Absolute Lymphocytes (CBC) 0.4 K/uL (0.7-4.9); Absolute Monocytes 0.2 K/uL (0.1-1.3); Absolute Neutrophil 6.3 K/uL (1.8-8.0); Basophils % 0.3 % (0-1.3); Hematocrit 45.2 % (36.0-45.0); MCH 30.4 pg (27.0-35.0); MCV 93.8 fL (80-100); MPV 8.2 fL (7.6-11.3); Monocytes % 3.1 % (3.3-12.3); RBC Red Blood Cell Count 4.81 M/uL (3.86-4.86)
[2018-10-08 12:51] LABS: Protime INR 1.23
[2018-10-08] MEDS ORDERED: AZITHROMYCIN 500 MG/250 ML BAG ONE (12:56)
[2018-10-08] MEDS ORDERED: CEFTRIAXONE/SWI 1gm 2 GM/20 ML SYR ONE (12:56)
[2018-10-08 13:10] LABS: ALT/SGPT 27 U/L (12-78); AST/SGOT 30 U/L (15-37); Albumin 3.3 g/dL (3.4-5.0); Alkaline Phosphatase 77 U/L (45-117); BUN Blood Urea Nitrogen 20 mg/dL (7-18); Bicarbonate 39 mmol/L (21-32); Bilirubin Direct 0.2 mg/dL (0-0.2); Bilirubin Total 0.4 mg/dL (0.2-1.0); Glucose Level 121 mg/dL (74-106); Magnesium 2.5 mg/dL (1.8-2.4); NT PRO-BNP 1453 pg/mL (<125); Potassium 4.5 mmol/L (3.5-5.1); Protein, Total 7.7 g/dL (6.4-8.2); Sodium Level 140 mmol/L (136-145); Troponin (Emerg Dept Use Only) 0.04 ng/mL (0.0-0.045)
--- NOTE | 2018-10-08 13:33 | RAD REPORT ---
EXAM DESCRIPTION: CT - Head Brain Wo Cont - 10/08/2018 1:16 pm CLINICAL HISTORY: Transient alteration of awareness COMPARISON: None. TECHNIQUE: Axial 5 mm thick images of the head were obtained without IV contrast. All CT scans are performed using dose optimization technique as appropriate and may include automated exposure control or mA/KV adjustment according to patient size. FINDINGS: No intracranial hemorrhage, mass, edema or shift of mid-line structures. No acute infarcti on changes seen. No significant atrophy or chronic ischemic change. Ventricles are normal. Mastoid air cells and visualized portions of the paranasal sinuses are clear. No acute bony findings. IMPRESSION: Negative non-contrast CT head examination for acute finding.
[2018-10-08 13:40] LABS: Blood Morphology Comment NOT SEEN (NOT SEEN); Platelet Estimate ADEQ
[2018-10-08] MEDS ORDERED: MAGNESIUM SULFATE 1 gm IVPB 1 GM/100 ML BAG IV ONE (14:42)
[2018-10-08] MEDS ORDERED: NA CHLORIDE 0.9% 500 ML ONE (14:42)
[2018-10-08] MEDS ORDERED: ACETAMINOPHEN 500 MG TAB ONE (15:18)
[2018-10-08 15:36] LABS: Arterial Blood Carboxyhemoglob 1.3 % (0-1.5); Blood Gas Oxyhemoglobin 89.4 % (94-97); Blood O2 Saturation 91.5 % (92-98.5)
--- NOTE | 2018-10-08 15:39 | EDPHYS ---
Physician Documentation [facility] Name: Carla Logan Age: 68 yrs Sex: Female : 1950 Arrival Date: 10/08/2018 Time: 09:57 Bed 2 Private MD: Channing Camarena T ED Physician Tiago Caban HPI: 10/08 10:24 This 68 yrs old Female presents to ER via Wheelchair with complaints of cp Weakness. 10:24 The patient presents to the emergency department with weakness of the entire body, cp generalized weakness. Onset: The symptoms/episode began/occurred at an unknown time. Current symptoms: confusion, shortness of breath. Unable to obtain HPI due to shortness of breath. Historical: - Allergies: 10:54 No Known Allergies; tw2 - PMHx: 10:54 Diabetes - NIDDM; Hypertension; tw2 - Immunization history:: Adult Immunizations. - Social history:: Smoking status: . - Ebola Screening: : Patient denies travel to an Ebola-affected area in the 21 days before illness onset. ROS: 10:26 Cardiovascular: Negative for chest pain. cp 10:26 Respiratory: Positive for shortness of breath, at rest. 10:26 Neuro: Positive for weakness, generalized. 10:26 Unable to obtain ROS due to shortness of breath. Exam: 10:35 Constitutional: The patient appears alert, awake, non-diaphoretic, non-toxic, well cp developed, well nourished, overweight 10:35 Head/Face: Normocephalic, atraumatic. cp 10:35 Eyes: Periorbital structures: appear normal, Pupils: equal, round, and reactive to light and accomodation, Extraocular movements: intact throughout, Conjunctiva: normal, no exudate, no injection, Sclera: no appreciated abnormality, Lids and lashes: appear normal, bilaterally. 10:35 ENT: External ear(s): are unremarkable, Ear canal(s): are normal, clear, TM's: bulging, is not appreciated, bilaterally, dullness, bilaterally, erythema, is not appreciated, bilaterally, Nose: is normal, Mouth: Lips: moist, Oral mucosa: moist, Posterior pharynx: is normal, airway is patent, no erythema, no exudate. 10:35 Neck: ROM/movement: is normal, is supple, without pain, no range of motions limitations, no meningismus, no nuchal rigidity. 10:35 Chest/axilla: Inspection: normal, Palpation: is normal, no crepitus, no tenderness. 10:35 Cardiovascular: Rate: tachycardic, Rhythm: regular, Pulses: Pulses are 2+ in right radial artery and left radial artery. Edema: is not appreciated, JVD: is not appreciated. 10:35 Respiratory: moderate respiratory distress is noted, Respirations: shallow respirations, that is moderate, Breath sounds: decreased breath sounds, that are severe, throughout. 10:35 Abdomen/GI: Inspection: abdomen appears normal, Palpation: abdomen is soft and non-tender, in all quadrants. 10:35 Back: pain, is absent, ROM is normal. 10:35 Skin: cellulitis, is not appreciated, no rash present. 10:35 Neuro: Orientation: unable to test, patient unable to communicate verbally, Mentation: able to follow commands, slow to respond, Cerebellar function: is grossly normal, Motor: moves all fours, strength is normal. 10:56 ECG was reviewed by the Attending Physician. cp Vital Signs: 10:17 Pulse 120; Pulse Ox 55% on R/A; la1 10:47 Pulse 109; Resp 21; Pulse Ox 96% on BiPAP; tw2 11:23 BP 130 / 81; Pulse 111; Resp 24 S; Pulse Ox 100% on BiPAP; Pain 0/10; iw 12:05 Temp 97.6(TE); iw 12:23 BP 130 / 98; Pulse 110; Resp 20; Pulse Ox 93% on BiPAP; tw2 13:49 BP 123 / 75; Pulse 104; Resp 25; Pulse Ox 93% on BiPAP; mh5 14:39 BP 119 / 95; Pulse 104; Resp 22; Pulse Ox 94% on BiPAP; tw2 15:40 BP 139 / 77; Pulse 105; Resp 32; Pulse Ox 98% on BiPAP; tw2 16:05 Weight 104.33 kg (R); tw2 16:30 BP 127 / 72; Pulse 100; Resp 23; Pulse Ox 100% on BiPAP; tw2 17:22 BP 126 / 77; Pulse 89; Resp 16; Pulse Ox 100% on ETT vent; tw2 17:58 BP 87 / 47; Pulse 85; Resp 17; Pulse Ox 99% on 30% FiO2 ETT vent; tw2 17:59 BP 106 / 62; Pulse 87; Resp 16; Pulse Ox 99% on ETT vent; tw2 10:47 18/6, rate 22 at 30% o2 tw2 17:22 500 end tidal vol, rate 16 tw2 17:58 provider notified of BP, propofol rate change back to 5mcg, EMS remains at bedside, tw2 next pressure 106/62 Procedures: 18:15 Intubation: Ventilated with 100% NRB prior to procedure. O2 saturation prior to cp procedure was 100 %. Intubated orally using # 3 Jackie blade with 7.5 mm ETT. was successful on first attempt. Ventilated with Ambu bag. Tube secured at right side of mouth measured 25 cm at lip. Placement verified by CXR, CO2 detector with (+) color change, auscultating bilateral breath sounds, O2 saturation after procedure was 100 %. Patient tolerated well. MDM: 10:13 Patient medically screened. 10/08 10:22 Order name: Basic Metabolic Panel; Complete Time: 14:10 10/08 14:10 Interpretation: Normal except: CL 96; CO2 39; GLUC 121; BUN 20. 10/08 10:22 Order name: CBC with Diff 10/08 12:51 Interpretation: Normal except: HCT 45.2; ROCÍO% 90.6; LYM% 6.0; MN% 3.1; LYMA 0.4. 10/08 10:22 Order name: LFT's; Complete Time: 14:10 10/08 10:22 Order name: Magnesium; Complete Time: 14:10 10/08 10:22 Order name: NT PRO-BNP; Complete Time: 14:10 10/08 10:22 Order name: PT-INR; Complete Time: 14:10 10/08 10:22 Order name: Troponin (emerg Dept Use Only); Complete Time: 14:10 10/08 10:22 Order name: Blood Culture Adult (2) 10/08 10:22 Order name: Lactate; Complete Time: 11:24 10/08 10:22 Order name: Procalcitonin; Complete Time: 14:10 10/08 10:22 Order name: Influenza Screen (a \T\ B); Complete Time: 11:24 10/08 11:24 Interpretation: Reviewed. 10/08 10:22 Order name: ABG 10/08 12:12 Order name: ABG Arterial Blood Gas; Complete Time: 12:51 EDMS 10/08 13:41 Order name: Manual Differential; Complete Time: 14:10 EDMS 10/08 10:22 Order name: XRAY Chest (1 view); Complete Time: 12:51 cp 10/08 10:22 Order name: BIPAP 10/08 12:43 Order name: CT Head Brain wo Cont; Complete Time: 14:10 cp 10/08 15:01 Order name: ABG; Complete Time: 16:11 cp 10/08 16:48 Order name: Urine Dipstick--Ancillary (enter results) 10/08 17:31 Order name: CXR XRAY eb 10/08 17:39 Order name: ABG eb 10/08 17:51 Order name: CXR XRAY 10/08 10:22 Order name: EKG; Complete Time: 10:24 cp 10/08 10:22 Order name: Cardiac monitoring; Complete Time: 10:47 cp 10/08 10:22 Order name: EKG - Nurse/Tech; Complete Time: 11:08 cp 10/08 10:22 Order name: IV Saline Lock; Complete Time: 10:47 cp 10/08 10:22 Order name: Labs collected and sent; Complete Time: 10:47 cp 10/08 10:22 Order name: O2 Per Protocol; Complete Time: 10:47 cp 10/08 10:22 Order name: O2 Sat Monitoring; Complete Time: 10:47 cp 10/08 11:25 Order name: Vital Signs: temperature; Complete Time: 12:24 cp 10/08 16:13 Order name: Reed; Complete Time: 16:32 cp EC:56 Rate is 110 beats/min. Rhythm is regular. MA interval is normal. QRS interval is cp normal. QT interval is normal. Interpreted by me. Reviewed by me. Administered Medications: 10:50 Drug: Albuterol - atroVENT (3:1) (2.5 mg - 0.5 mg) 3 ml Route: Nebulizer; tw2 12:48 Follow up: Response: No adverse reaction tw2 10:50 Drug: SOLU-Medrol 125 mg Route: IVP; Site: right antecubital; tw2 12:48 Follow up: Response: No adverse reaction tw2 12:55 Drug: Rocephin - (cefTRIAXone) 2 grams Route: IVPB; Infused Over: 30 mins; Site: right sv antecubital; 13:00 Follow up: Response: No adverse reaction; IV Status: Completed infusion tw2 13:00 Drug: Zithromax 500 mg Route: IVPB; Infused Over: 1 hrs; Site: left antecubital; sv 14:20 Follow up: Response: No adverse reaction; IV Status: Completed infusion tw2 14:38 Drug: Magnesium Sulfate 1 grams Route: IVPB; Infused Over: 1 hrs; Site: left tw2 antecubital; 15:38 Follow up: IV Status: Infusion continued upon transfer tw2 15:38 Follow up: IV Status: Completed infusion tw2 14:39 Drug: NS 0.9% 500 ml Route: IV; Rate: bolus; Site: left antecubital; tw2 15:00 Follow up: Response: No adverse reaction; IV Status: Completed infusion; IV Intake: tw2 500ml 15:00 Drug: Tylenol 1000 mg Route: PO; tw2 16:32 Follow up: Response: No adverse reaction tw2 16:49 Drug: Etomidate 20 mg Route: IVP; Site: left antecubital; sv 17:52 Follow up: Response: No adverse reaction; Marked relief of symptoms tw2 16:50 Drug: Succinylcholine 100 mg Route: IVP; Site: left antecubital; sv 16:52 Follow up: Response: No adverse reaction; Marked relief of symptoms tw2 16:56 Drug: Propofol 100 mg {Note: given by Dr Caban.} Route: IVP; Site: right forearm; sv 18:03 Follow up: Response: No adverse reaction tw2 17:01 Drug: NS 0.9% 1000 ml Route: IV; Rate: 1000 ml; Site: right forearm; sv 18:01 Follow up: IV Status: Infusion continued upon transfer tw2 17:10 Drug: Propofol 5 mcg/kg/min Route: IV; Rate: calculated rate; Site: right forearm; sv 17:15 Follow up: Rate change 10 calculated rate sv 18:01 Follow up: IV Status: Infusion continued upon transfer tw2 Point of Care Testing: Blood Glucose: 12:20 Blood Glucose: 108 mg/dL; mh5 10:53 blood sent tw2 Ranges: Critical Glucose Levels:Adult <50 mg/dl or >400 mg/dl <40 mg/dl or >180 mg/dl Disposition: 18:20 Co-signature as Attending Physician, Tiago Caban MD I agree with the assessment and kdr plan of care. Disposition: 10/08/18 15:39 Transfer ordered to [facility]. Diagnosis are Acute respiratory failure with hypoxia, Pneumonia due to other specified bacteria. - Reason for transfer: Higher level of care. - Accepting physician is DR Goncalves. - Condition is Stable. - Problem is new. - Symptoms have improved. Critical care time excluding procedures: 19:00 Critical care time: Bedside Care: 30 minutes, Consultation: 15 minutes, Family cp Intervention: 10 minutes. Total time: 55 minutes Signatures: Dispatcher [employer] Natalie Barth, RN RN Tiago Ribera MD MD [facility] Samson Huitron PA PA cp Courtney Bunn RN RN tw2 Corrections: (The following items were deleted from the chart) 18:12 15:39 10/08/2018 15:39 Transfer ordered to [facility]. Diagnosis is sv Acute respiratory failure with hypoxia; Pneumonia due to other specified bacteria. Reason for transfer: Higher level of care. Accepting physician is DR Goncalves. Condition is Stable. Problem is new. Symptoms have improved. cp 18:51 18:12 10/08/2018 15:39 Transfer ordered to [facility]. Diagnosis is tw2 Acute respiratory failure with hypoxia; Pneumonia due to other specified bacteria. Reason for transfer: Higher level of care. Accepting physician is DR Goncalves. Condition is Stable. Problem is new. Symptoms have improved. sv
--- NOTE | 2018-10-08 15:39 | ER ---
Nurse's Notes [facility] Name: Carla Logan Age: 68 yrs Sex: Female : 1950 Arrival Date: 10/08/2018 Time: 09:57 Bed 2 Private MD: Channing Camarena T Diagnosis: Acute respiratory failure with hypoxia;Pneumonia due to other specified bacteria Presentation: 10/08 10:10 Presenting complaint:. la1 10:16 Presenting complaint: Patient states: Pt not able to communicate with staff, appears la1 cyanotic. Pt RA sats 55%. Taken to room and put on NRB at 15lpm. ERP notified. Transition of care: patient was not received from another setting of care. 10:16 Acuity: YESISCA 1 la1 10:16 Method Of Arrival: Wheelchair la1 10:20 Onset of symptoms was October 08, 2018. Initial Sepsis Screen: Does the patient meet tw2 any 2 criteria? RR > 20 per min. Altered Mental Status. Yes Does the patient have a suspected source of infection? Yes: Other: unknown at this time. Care prior to arrival: None. 15:57 Risk Assessment: Do you want to hurt yourself or someone else? Patient reports no tw2 desire to harm self or others. Historical: - Allergies: 10:54 No Known Allergies; tw2 - PMHx: 10:54 Diabetes - NIDDM; Hypertension; tw2 - Immunization history:: Adult Immunizations. - Social history:: Smoking status: . - Ebola Screening: : Patient denies travel to an Ebola-affected area in the 21 days before illness onset. Screenin:24 Abuse screen: Denies threats or abuse. Denies injuries from another. Nutritional iw screening: No deficits noted. Tuberculosis screening: No symptoms or risk factors identified. Fall Risk IV access (20 points). Assessment: 11:23 General: Appears uncomfortable, ill, Behavior is drowsy, listless. Pain: Unable to use iw pain scale. Patient appears quiet, withdrawn. Neuro: Level of Consciousness is listless, Oriented to person, Moves all extremities. Cardiovascular: Patient's skin is warm and dry. Respiratory: Respiratory effort is even, unlabored, Respiratory pattern is symmetrical. Derm: Skin is intact. Musculoskeletal: Range of motion: intact in all extremities. 12:19 Neuro: Level of Consciousness is listless, Reaction to noxious stimuli is withdrawal iw moaning . Cardiovascular: Patient's skin is warm and dry. Respiratory: Respiratory effort is labored, Respiratory pattern is symmetrical. 12:36 Reassessment: pt opens eyes to verbal and tactile stimuli, pt follows commands at this iw time, Dr. Caban at bedside to assess pt, Richar, RN at bedside to attempt US IV insertion. 12:42 Reassessment: Labs sent. iw 13:10 Reassessment: RT at bedside, pt placed on o2 via nc via 2L at this time for transport tw2 to CT at this time. 14:40 Reassessment: Patient appears in no apparent distress at this time. Patient and/or tw2 family updated on plan of care and expected duration. Pain level reassessed. pt has eyes open, is using her phone at this time, able to follow commands. 15:00 Reassessment: Patient appears in no apparent distress at this time. Patient and/or tw2 family updated on plan of care and expected duration. Pain level reassessed. Patient is alert, oriented x 3, equal unlabored respirations, skin warm/dry/pink. pt was placed on o2 at 2L via nc per Laureano.LAINE Huitron, will continue to monitor, o2 at 99% at this time. 15:52 Reassessment: pts daughter reports mother is having a hard time swallowing now and has tw2 become drowsy again, provider notified and at bedside, Amalia ordered bipap to be placed back on at this time. equal supervisor cold rolling, face is symmetrical, pt can follow all commands. 16:43 Reassessment: pt drowsy at this time, a\T\o2, CLAINE Clinton, Dr. Caban and pts daughter at 2 bedside at this time decided pt needs to be intubated to be stable for transport. 17:56 Reassessment: ET tube pulled back to 22 at the lip via C.LAINE Huitron, xray notified., EMS tw2 at bedside wants confirmation prior to transporting pt, 97%. Vital Signs: 10:17 Pulse 120; Pulse Ox 55% on R/A; la1 10:47 Pulse 109; Resp 21; Pulse Ox 96% on BiPAP; tw2 11:23 BP 130 / 81; Pulse 111; Resp 24 S; Pulse Ox 100% on BiPAP; Pain 0/10; iw 12:05 Temp 97.6(TE); iw 12:23 BP 130 / 98; Pulse 110; Resp 20; Pulse Ox 93% on BiPAP; tw2 13:49 BP 123 / 75; Pulse 104; Resp 25; Pulse Ox 93% on BiPAP; mh5 14:39 BP 119 / 95; Pulse 104; Resp 22; Pulse Ox 94% on BiPAP; tw2 15:40 BP 139 / 77; Pulse 105; Resp 32; Pulse Ox 98% on BiPAP; tw2 16:05 Weight 104.33 kg (R); tw2 16:30 BP 127 / 72; Pulse 100; Resp 23; Pulse Ox 100% on BiPAP; tw2 17:22 BP 126 / 77; Pulse 89; Resp 16; Pulse Ox 100% on ETT vent; tw2 17:58 BP 87 / 47; Pulse 85; Resp 17; Pulse Ox 99% on 30% FiO2 ETT vent; tw2 17:59 BP 106 / 62; Pulse 87; Resp 16; Pulse Ox 99% on ETT vent; tw2 10:47 18/6, rate 22 at 30% o2 tw2 17:22 500 end tidal vol, rate 16 tw2 17:58 provider notified of BP, propofol rate change back to 5mcg, EMS remains at bedside, tw2 next pressure 106/62 ED Course: 09:57 Patient arrived in ED. mr 09:57 Channing Camarena MD is Private Physician. mr 10:12 Samson Huitron [facility]. cp 10:12 Tiago aCban MD is Attending Physician. cp 10:17 Triage completed. la1 10:17 Arm band placed on right wrist. la1 10:20 Patient has correct armband on for positive identification. Call light in reach. Side mh5 rails up X2. power hammer operator on. Pulse ox on. NIBP on. 10:20 Inserted saline lock: 20 gauge in right antecubital area, using aseptic technique. tw2 Blood collected. 10:46 Courtney Bunn RN is Primary Nurse. tw2 10:46 Lactate Sent. tw2 11:17 XRAY Chest (1 view) In Process Unspecified. EDMS 12:22 Missed attempt(s): 24 gauge in left Bleeding controlled, band aid applied, catheter tip tw2 intact. Missed attempt(s): 24 gauge in right hand. notified, ENOCH Mcqueen to attempt at getting recollect of labs at this time, 20 g RIGHT ac flushes well, no blood return. Bleeding controlled, band aid applied, catheter tip intact. 12:44 Accessed peripheral vein via ultrasound, utilizing dynamic ultrasound technique using tw2 18G Sureflo IV catheter Clean \T\ dry. LEFT AC per ENOCH Mcqueen. 13:[address] via stretcher. vm2 13:16 CT completed. Patient moved back from CT. vm2 13:16 CT Head Brain wo Cont In Process Unspecified. EDMS 14:32 IV discontinued, intact, bleeding controlled, Pressure dressing applied, infiltration tw2 noted to RIGHT AC, iv discontinued at this time., provider aware. warm compress applied. 15:48 \T\[id number] initiated transfer with Lara at the [facility] / \T\ [address] blaine Goncalves with Elana JANG for patient transfer consultation/ \T\[id number] administrative approval given by Lara Blancas RN / pt going to [phone]/ report to be called to [phone]. 16:31 Reed cath inserted, using sterile technique, 18 Fr., by pr, balloon inflated, urine tw2 specimen collected. other Escobar Hathaway and ENOCH Estrada served as plant technician. 16:53 Missed attempt(s): 20 gauge in right forearm. Bleeding controlled, band aid applied, sv catheter tip intact. 16:54 Inserted saline lock: 22 gauge in right forearm, using aseptic technique. Flushed right sv forearm with 5 ml normal saline. 17:00 7.5 ET tube, 25 at lip, verified by b/l breath sounds, xray on standby once central tw2 line is in place. 17:10 OG 16fr , verified by gastric return and auscultation. tw2 17:15 Assisted provider with central line placement. Set up central line tray. Triple lumen sv line placed in right femoral. Line placed by Tiago Caban MD Placement verified by blood return, Dressed with Tegaderm, Patient tolerated well. Before procedure, did Practitioner(s) obtain informed consent? No. Patient \T\ family education about procedure, CLABSI prevention and S/S of infection? No. Time-out/Briefing performed prior to start of procedure? Yes. Was handwashing/sanitizing done immediately prior to procedure? Yes. Was patient positioned to in a way to prevent air embolism? Yes. Was procedure site sterilized? Yes, with chlorhexidine. Was the site allowed to dry? Yes. Was local anesthetic and/or sedation utilized? Yes. During the procedure, did the Practitioner(s) maintain a sterile field? Yes. Were unused ports clamped during insertion? Yes. Was a 2nd qualified MD obtained after 3 unsuccessful insertion attempts? Yes. Was blood aspirated from each lumen? Yes. After the procedure, did the Practitioner(s) clean the site and apply a sterile dressing? Yes. 17:41 Report given to ENOCH Dumont updated as to pts condition. tw2 17:44 CXR XRAY In Process Unspecified. EDMS 18:06 CXR XRAY In Process Unspecified. EDMS Administered Medications: 10:50 Drug: Albuterol - atroVENT (3:1) (2.5 mg - 0.5 mg) 3 ml Route: Nebulizer; tw2 12:48 Follow up: Response: No adverse reaction tw2 10:50 Drug: SOLU-Medrol 125 mg Route: IVP; Site: right antecubital; tw2 12:48 Follow up: Response: No adverse reaction tw2 12:55 Drug: Rocephin - (cefTRIAXone) 2 grams Route: IVPB; Infused Over: 30 mins; Site: right sv antecubital; 13:00 Follow up: Response: No adverse reaction; IV Status: Completed infusion tw2 13:00 Drug: Zithromax 500 mg Route: IVPB; Infused Over: 1 hrs; Site: left antecubital; sv 14:20 Follow up: Response: No adverse reaction; IV Status: Completed infusion tw2 14:38 Drug: Magnesium Sulfate 1 grams Route: IVPB; Infused Over: 1 hrs; Site: left tw2 antecubital; 15:38 Follow up: IV Status: Infusion continued upon transfer tw2 15:38 Follow up: IV Status: Completed infusion tw2 14:39 Drug: NS 0.9% 500 ml Route: IV; Rate: bolus; Site: left antecubital; tw2 15:00 Follow up: Response: No adverse reaction; IV Status: Completed infusion; IV Intake: tw2 500ml 15:00 Drug: Tylenol 1000 mg Route: PO; tw2 16:32 Follow up: Response: No adverse reaction tw2 16:49 Drug: Etomidate 20 mg Route: IVP; Site: left antecubital; sv 17:52 Follow up: Response: No adverse reaction; Marked relief of symptoms tw2 16:50 Drug: Succinylcholine 100 mg Route: IVP; Site: left antecubital; sv 16:52 Follow up: Response: No adverse reaction; Marked relief of symptoms tw2 16:56 Drug: Propofol 100 mg {Note: given by Dr Caban.} Route: IVP; Site: right forearm; sv 18:03 Follow up: Response: No adverse reaction tw2 17:01 Drug: NS 0.9% 1000 ml Route: IV; Rate: 1000 ml; Site: right forearm; sv 18:01 Follow up: IV Status: Infusion continued upon transfer tw2 17:10 Drug: Propofol 5 mcg/kg/min Route: IV; Rate: calculated rate; Site: right forearm; sv 17:15 Follow up: Rate change 10 calculated rate sv 18:01 Follow up: IV Status: Infusion continued upon transfer tw2 Point of Care Testing: Blood Glucose: 12:20 Blood Glucose: 108 mg/dL; mh5 10:53 blood sent tw2 Ranges: Intake: 15:00 IV: 500ml; Total: 500ml. tw2 Outcome: 15:39 ER care complete, transfer ordered by . cp 18:12 Patient left the ED. sv 18:12 Transferred by ground EMS to [facility]. tw2 18:12 critical 18:12 Instructed on the need for transfer. 18:51 Patient left the ED. tw2 Signatures: Dispatcher [employer] EDMS Natalie Lawson RN RN sv Rivera, Mary mr Williams, Irene, RN RN iw Attema, Lee, RN RN laSamson Rdz PA PA cp Wise, Tara, RN RN 2 Milka Olmedo Cyndy Roberts [facility] Maria Alejandra Carlson Corrections: (The following items were deleted from the chart) 14:40 10:47 Pulse 109bpm; Resp 21bpm; Pulse Ox 96% BiPAP; tw2 tw2 14:41 10:47 Pulse 109bpm; Resp 21bpm; Pulse Ox 96% BiPAP; 16/6, rate 33 at 30% o2; tw2 tw2 15:57 12:44 Accessed peripheral vein via ultrasound, utilizing dynamic ultrasound technique tw2 using 18G Sureflo IV catheter Clean \T\ dry. la1 15:57 12:44 Accessed peripheral vein via ultrasound, utilizing dynamic ultrasound technique tw2 using 18G Sureflo IV catheter Clean \T\ dry. LEFT AC. tw2
[2018-10-08] MEDS ORDERED: RSI MEDICATION KIT IV ONE (16:43)
[2018-10-08] MEDS ORDERED: PROPOFOL 1,000 MG/100 ML VIAL IV ONE (16:44)
[2018-10-08] MEDS ORDERED: NA CHLORIDE 0.9% 2,000 ML ONE (17:16)
[2018-10-08 17:31] LABS: Urine Blood NEGATIVE (NEG); Urine Glucose NEGATIVE (NEG); Urine Protein 1+ (NEG); Urine pH 5.5 (5.0-7.0)
[2018-10-08 17:42] LABS: Arterial Blood Carboxyhemoglob 1.4 % (0-1.5); Blood Gas Oxyhemoglobin 95.3 % (94-97); Blood O2 Saturation 97.7 % (92-98.5)
--- NOTE | 2018-10-08 17:54 | RAD REPORT ---
EXAM DESCRIPTION: RAD - Chest Single View - 10/08/2018 5:43 pm CLINICAL HISTORY: Intubation, respiratory distress COMPARISON: October 08 TECHNIQUE: AP portable chest image was obtained 1731 hours . FINDINGS: Endotracheal tube tip is at the right mainstem bronchus origin. NG tube is well positioned . Lung volumes are low. Patchy left base opacification is present along with small left pleural effus ion. This is similar to the exam earlier in the day. Heart size is normal. No pneumothorax. No right- sided pleural effusion. No acute bony abnormality seen. No acute aortic findings suspected. IMPRESSION: Endotracheal tube tip is at the right mainstem bronchus origin. NG tube is well positioned. Left base pneumonia with minimal pleural effusion unchanged from earlier in the day.
--- NOTE | 2018-10-08 20:10 | RAD REPORT ---
EXAM DESCRIPTION: RAD - Chest Single View - 10/08/2018 6:05 pm CLINICAL HISTORY: Intubation, respiratory distress COMPARISON: October 08 TECHNIQUE: AP portable chest image was obtained 1750 hour . FINDINGS: Endotracheal tube has been repositioned. Tip is mid aortic arch level 2 cm above the nathen a. No identifiable change to the NG tube. Heart, vasculature and lung markings are stable. IMPRESSION: ET tube repositioned to the mid aortic arch level, 2 cm above the obey.
--- NOTE | 2018-10-09 06:10 | EKG ---
Test Date: 2018-10-08 Test Time: 10:55:04 Dice Table Operator: YIN MEASUREMENT RESULTS: Intervals: Rate: 110 MN: 172 QRSD: 86 QT: 322 QTc: 435 Gay: P: 65 MN: 172 QRS: -19 T: 68 INTERPRETIVE STATEMENTS: Sinus tachycardia Otherwise normal ECG Compared to ECG 03/05/2018 22:39:09 Sinus rhythm no longer present Left ventricular hypertrophy no longer present Electronically Signed On 10-09-18 06:08:47 MINESWEEPING OFFICER by Shaheed Alamo
== END 2018-10-08 18:51 | disposition short-term general hospital (02) ==
LOC: ER 09:54
PROC: 0BH17EZ Insertion of Endotracheal Airway into Trachea, Via Natural or Artificial Opening (ICD-10-PCS; principal; 2018-10-08)
PROC: 5A1935Z Respiratory Ventilation, Less than 24 Consecutive Hours (ICD-10-PCS; 2018-10-08)
DX: J96.01 Acute respiratory failure with hypoxia (principal); J15.8 Pneumonia due to other specified bacteria; I10 Essential (primary) hypertension
CPT/HCPCS: 31500; 36415; 51702; 70450; 71045 ×3; 80048; 80076; 81003; 82805 ×4; 82962; 83605; 83735; 83880; 84145; 84484; 85025; 85610; 87040 ×2; 87804 ×2; 93005; 94002; 94640; 94660; 99291; 99292; J0330; J0456; J0696; J2704; J2930; J3475; J7030